=== PATIENT | female | born 1970 | race Caucasian/White ===

== ENCOUNTER 2017-01-24 13:43 | Emergency (ER) | payer MEDICAID ==
[~2017-01-24] VITALS: Ht 170.2 cm; Wt 82.6 kg
[~2017-01-24 13:43] MED LIST: ACYCLOVIR 400M400 MG PO; ATENOLOL/CHLORT1 TAB PO; BENTYL10 M1 PO; BUPROPION HCL150 M1 PO; CLARITIN 10MG T10 MG PO; ETODOLAC400 MG PO; FUROSEMIDE 20MG20 MG PO; GABAPENTIN100 M1 PO; IMITREX100 MG PO; IPRATROPIUM BROM3 M1 IH; MELOXICAM15 MG PO; NEXIUM 24HR20 MG PO; PERCOCET1 TAB PO; PERCOGESIC1 TAB PO; SYMBICORT1 AE1 IH; VENTOLIN H0.09 MG/Ac IH; ZOFRAN ODT4 MG PO
--- NOTE | 2017-01-24 15:26 | Urgent Treatment Center Report ---
History of Present Issue Date/Time Seen by Provider 01/24/17 1400 Visit Reason Pt arrived:Walked Presenting Problem:PT REPORTS A FALL TODAY, HITTING LUE. PT HAS A CAST ON LUE R/ T BROKEN ARM PT REPORTS HAS RODS IN ARM THAT ARE KNOWN TO BE BROKEN. PT STATES THAT SHE WAS TOLD THAT WITH ANY INJURY SHE SHOULD HAVE ARM X-RAYED AGAIN WITH ANY INJURY R/T KNOWN BROKEN RODS IN LUE Location if Accident: Onset of symptoms date/time:01/24/17/ or onset unknown for:MEDICAL HX UNKNOWN Have you (or family members/close friends) recently traveled outside the [place]? N If Yes, where/when: Have you had exposure to infectious disease within the past month? TB? Other? Specify: Patient states that she has a cast on her left arm. States that she was walking down her steps and tripped and fell and landed on her left upper arm and on the cast. States that she had been told in April that the marc and pin inside her arm was broken. States that she is afraid that she has done more damage now with this fall and wanted to make sure she didn't re-break the bone ALLERGIES Coded Allergies: Penicillins (Mild, 07/23/16) azithromycin (From ZITHROMAX) (Mild, 07/23/16) codeine (Mild, 07/23/16) ketorolac (From TORADOL) (Mild, 07/23/16) morphine (Mild, 07/23/16) promethazine (From PHENERGAN) (Mild, 07/23/16) tramadol (From ULTRAM) (Mild, 07/23/16) Home Medications Active Scripts ACETAMINOPHEN/DIPHENHYDRAMINE (Percogesic 325-12.5 MG Tablet) 1 TAB PO QIDP PRN pain #20 TAB Prov: 07/23/16 Reported Medications Gabapentin (Gabapentin 100MG) 800 MG PO QID Ondansetron (Zofran 4MG Odt) 4 MG PO Q6HP PRN NAUSEA AND VOMITING Sumatriptan Succinate (Imitrex) 50 MG PO PRN PRN MIGRAINES DICYCLOMINE HCL (Bentyl) 10 MG PO BIDP PRN STOMACH OXYCODONE HCL/ACETAMINOPHEN (Percocet 5-325 MG Tablet) 1 TAB PO BID Atenolol/Chlorthalidone (Atenolol-Chlorthalidone 100-25) 1 TAB PO DAILY #30 Furosemide (Furosemide) 20 MG PO DAILY PRN FLUID #30 ACYCLOVIR SODIUM (Acyclovir 400MG) 400 MG PO BID PRN SHINGLES #35 Albuterol Sulfate (Ventolin Hfa) 0.09 MG IH Q4HP PRN BREATHING #18 Esomeprazole Magnesium (Nexium 24HR) 20 MG PO DAILY #30 BUDESONIDE/FORMOTEROL FUMARATE (Symbicort 160-4.5 Mcg Inhaler) 2 PUFFS IH BID #10 ALBUTEROL-IPRATROPIUM (Iprat-Albut 0.5-3(2.5) MG/3 Ml) 3 ML IH Q4HP PRN BREATHING #180 Loratadine (Claritin 10MG) 10 MG PO DAILY #30 Bupropion Hcl (Bupropion HCl Sr) 300 MG PO DAILY #60 Meloxicam (Meloxicam 15MG) 15 MG PO BID #30 History Medical History General CAD? No Angina: No [place]: No Hypertension? No Hyperlipidemia? No CHF? No DVT? No PE? No COPD? Yes Asthma? No Anemia? No GERD? No Gastric ulcers? No GI Bleed? No Hernia? No Thyroid Problems? No Hypothyroidism? No CVA? No Seizures? No Diabetes? No Renal Insuffiency? No UTI? No Stones? No BPH? No GB Disease: No Nephritic Syndrome? No Asplenia? No Hepatitis? Yes Sickle Cell Disease? No Arthritis? No Migraines? No Cataracts? No Glaucoma? No MRSA? No HIV? No TB? No Anxiety? No Depression? No Cancer? No More? Yes Additional hx: NEUROPATHY, FIBROMYALGIA, PANCREATITIS, Immunization HX DT/Tetanus 1-4 Years Ago Surgical Hx Previous Surgery?Y LEFT ARM GALLBLADDER TUBAL Social History Smoking Hx Smoker: Current Every Day Smoker Tobacco: Yes Type Cigarettes Packs/day < 1 Pack Alcohol Alcohol: No Review of Systems All Other Systems Reviewed and Negative Comment pain in left arm under cast area after falling earlier today and landing on the left arm. Physical Exam Vital Signs Vital Signs Date Time Temp Pulse Resp B/P Pulse O2 O2 Flow FiO2 Ox Delivery Rate 01/24 1437 98.0 90 18 145/97 98 01/24 1408 98.0 90 18 145/97 98 General Appearance normal appearance, WD/WN, no apparent distress Respiratory Status Yes: trachea midline, chest symmetrical, non tender chest. No: respiratory distress. 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 No Results/Orders Orders Procedure Date/time Status FOREARM-LT 01/24 1433 Active XRAY/CT/US XRAY/CT/US XRAY forearm XR interpretation by discussed w/radiologist Departure Departure Time of Disposition 1540 Disposition DC Home or Self Care(routine) Clinical Impression Primary Impression: Arm pain Qualifiers: Laterality: left Qualified Code: M79.602 - Pain in left arm Condition STABLE Referrals Jazmyne VILLARREAL,Luis Alberto LESLIE MD, CAMACHO GARCIA Patient Instructions DI for Arm Pain, How To Perform RICE (Rest, Ice, Compress, Elevate) Additional Instructions Follow up with family doctor/Orthopedics for further treatment Take prescribed pain medicaiton as directed for pain Follow up with family doctor ZULEIKA as needed Return if needed Discharge Counseling Counseled pt/family regarding diagnosis, test results, home care, follow up needs Comments Patient state that she still has previously prescribed pain medication at home and will continued to take that for pain at 1546
--- NOTE | 2017-01-24 15:32 | RADIOLOGY REPORT PS360 ---
FOREARM-LT CLINICAL INDICATION: Pain following the re injury ALREADY BROKEN. THINKS PINS ARE BROKEN ORDERING PHYSICIAN: LILA ISBELL APRN PATIENT AGE: 46 years COMPARISON: 04/23/2016 and 07 23 16. FINDINGS: The study is obtained through cast which does obscure fine bony detail. Patient has had a prior ORIF of midshaft ulnar and mid to proximal shaft radial fracture. There are 2 bone plates overlying the mid and distal radius which appear intact. Fracture line is patent through the proximal aspect of the radius. There is a fractured bone plate of the ulna. The fracture is through the mid aspect of the bone plate with mild displacement of the distal fracture bone plate fragment x 5 mm medially. This was present on the previous exam. The bony fracture is difficult to evaluate due to the cast. In addition, there is a fracture screw involving the ulnar bone plate which was not readily apparent on the previous exam. This screw is the fourth screw from the proximal aspect of the bone plate. IMPRESSION: Prior ORIF left radial and ulnar fractures as described above. A fractured bone plate is once again noted involving the ulna with a new nondisplaced fracture of the fourth screw within the bone plate from the proximal aspect of the plate
[2017-01-24 16:02] VITALS: BP 145/97
== END 2017-01-24 16:02 | disposition home or self-care (01) ==
LOC: ER 13:43 → UTC 14:26
DX: M79.602 Pain in left arm (principal)